=== PATIENT | male | born 1955 | race African-American/Black ===

== ENCOUNTER 2023-09-02 15:30 | Inpatient (IN) | payer OTHER, SELFPAY ==
[2023-09-02 17:00] LABS: #Basophils 0.02 10x3/uL (0.0-0.2); #Eosinphils 0.03 10x3/uL (0.0-0.5); #Monocytes 0.88 10x3/uL (0.0-1.1); #Neutrophils 3.13 10x3/uL (1.5-8.4); %Basophils 0.3 % (0.0-2.0); %Eosinophils 0.5 % (0.0-6.0); %Lymphocytes 36.6 % (18.0-47.0); %Monocytes 13.7 % (0.0-10.0); %Neutrophils 48.6 % (40.0-75.0); Hemoglobin 10.5 g/dL (13.5-17.5); Mean Corpuscular HGB CONC 32.8 g/dL (32.0-36.0); Mean Corpuscular Hemoglobin 30.6 pg (27.0-33.0); Mean Corpuscular Volume 93.3 fl (81.2-95.1); Mean Platelet Volume 11.8 fl (7.4-10.4); Platelet Count 145 10x3/uL (150-450); RBC Distribution Width 13.4 % (11.5-14.5); Red Blood Cell (RBC) Count 3.43 10x6/uL (4.32-5.72); White Blood Cell (WBC) Count 6.4 10x3/uL (3.5-10.5)
[2023-09-02 17:06] LABS: ALT (SGPT) 20 U/L (8-55); AST (SGOT) 44 U/L (5-34); Acetaminophen Less than 10 mcg/mL (10.0-30.0); Albumin 3.3 g/dL (3.4-4.8); Alcohol Less than 10.0 mg/dL (Less than 10); Alkaline Phosphatase 75 U/L (40-110); Anion Gap 18 mmol/L (10-20); BUN (Urea Nitrogen) 20 mg/dL (8.4-25.7); Bilirubin, Total 0.9 mg/dL (0.2-1.2); Calc. Creatinine Clearance 0 mL/min (70-130); Calcium 9.8 mg/dL (7.8-10.44); Carbon Dioxide 22 mmol/L (23-31); Chloride 102 mmol/L (98-107); Estimated GFR 94; Globulin 3.9 g/dL (2.4-3.5); Glucose 108 mg/dL (80-115); Lipase 34 U/L (8-78); Magnesium 1.9 mg/dL (1.6-2.6); Potassium 4.5 mmol/L (3.5-5.1); Protein, Total 7.2 g/dL (5.8-8.1); Salicylate Less than 8.0 mg/dL (15.0-30.0); Sodium 137 mmol/L (136-145)
[2023-09-02 17:07] LABS: Troponin I 0.063 ng/mL (< 0.028)
[2023-09-02] MEDS ORDERED: Guaifenesin DM 100-10/5 ML UDCUP PO PRN (19:25)
[2023-09-02] MEDS ORDERED: Calcium Carbonate 500 MG ChewTAB PO PRN (19:25)
[2023-09-02] MEDS ORDERED: Ondansetron PF 4 MG/2 ML Vial IVP PRN (19:25)
[2023-09-02] MEDS ORDERED: Senokot S 8.6-50 MG TAB PO PRN (19:25)
[2023-09-02 19:39] LABS: Lactic Acid 2.4 mmol/L (0.5-2.2)
[2023-09-02 20:10] VITALS: BMI 15.0
[2023-09-02] MEDS: Metoprolol Tartrate 25 MG TAB PO SCH (20:25)
[2023-09-02] MEDS: Thiamine HCl 200 MG/2 ML VIAL SLOW IVP SCH (20:25)
[2023-09-02] MEDS: Dextrose 5 % And 0.9 % NaCl 1,000 ML IV SCH (20:25)
[2023-09-03] MEDS: VANCOMYCIN 1.25 GM/250 ML BAG 1.25 GM in Premix 1 BAG IVPB SCH (01:26)
[2023-09-03 04:21] LABS: Hematocrit 28.2 % (38.8-50.0); Hemoglobin 9.6 g/dL (13.5-17.5); Mean Corpuscular Hemoglobin 31.2 pg (27.0-33.0); Mean Corpuscular Volume 91.6 fl (81.2-95.1); Mean Platelet Volume 12.1 fl (7.4-10.4); Platelet Count 125 10x3/uL (150-450); RBC Distribution Width 13.3 % (11.5-14.5); Red Blood Cell (RBC) Count 3.08 10x6/uL (4.32-5.72)
[2023-09-03 04:33] LABS: MDiff Complete? YES
[2023-09-03 04:37] LABS: Eosinophils 2 % (0-10); Lymphocytes 39 % (21-51); Monocytes 9 % (0-10); Neutrophil 49 % (42-75); Reactive Lymphocytes 1 % (0-10)
[2023-09-03 04:38] LABS: White Blood Cell (WBC) Count 6.5 10x3/uL (3.5-10.5)
[2023-09-03 04:39] LABS: Lactic Acid 0.9 mmol/L (0.5-2.2)
[2023-09-03 04:44] LABS: Anion Gap 13 mmol/L (10-20); BUN (Urea Nitrogen) 19 mg/dL (8.4-25.7); CK (CPK) 440 U/L (30-200); Calc. Creatinine Clearance 71 mL/min (70-130); Calcium 9.2 mg/dL (7.8-10.44); Carbon Dioxide 22 mmol/L (23-31); Chloride 107 mmol/L (98-107); Estimated GFR 98; Glucose 94 mg/dL (80-115); Sodium 138 mmol/L (136-145)
[2023-09-03 04:45] LABS: Ovalocytes SLIGHT = 2-5 cells (100X) (0-1/hpf)
[2023-09-03 04:46] LABS: Platelet Adequacy Comment Appears Adequate
[2023-09-03 04:52] LABS: Troponin I 0.051 ng/mL (< 0.028)
[2023-09-03 08:21] LABS: Bilirubin Neg (Negative); Blood, Urine Negative (Negative); Clarity Clear (Clear); Glucose, Urine (Dipstick) Normal (Negative); Ketone, Urine Negative (Negative); Leukocyte 25 (Negative); Nitrite Negative (Negative); Protein, Urine (Dipstick) 15 mg/dl (Neg-Trace); Specific Gravity, Urine 1.025 (1.005-1.030)
[2023-09-03 08:27] LABS: Bacteria/HPF 2+ HPF (None Seen); RBC/HPF 0-3 HPF (0-3); Squamous Epithelial 0-3 HPF (0-3)
[2023-09-03] MEDS: traMADol HCl 50 MG TAB PO PRN (10:01)
[2023-09-03] MEDS: Thiamine 100 MG TAB PO SCH (10:02)
[2023-09-03] MEDS: Folic Acid 1 MG TAB PO SCH (10:02)
[2023-09-03] MEDS: Aspirin 81 mg Enteric Coated Tablet PO SCH (10:02)
[2023-09-03] MEDS: Multivit, Therapeutic 1 TAB PO SCH (10:03)
[2023-09-03] MEDS: Enoxaparin 40 MG (0.4 mL) SYRINGE SC SCH (10:03)
[2023-09-03] MEDS: Vancomycin HCl 750 MG in Sodium Chloride 0.9% 250 ML 250 ML IVPB SCH (12:47)
[2023-09-03] MEDS: Lorazepam 2 MG/ML VIAL SLOW IVP PRN (13:31)
[2023-09-03] MEDS: Rosuvastatin 20 MG TAB PO SCH (21:30)
[2023-09-03] MEDS: Mirtazapine 15 MG TAB PO SCH (21:30)
[2023-09-04 04:26] LABS: Vancomycin, Random 10.4 ug/mL (See Comment)
[2023-09-04 04:27] LABS: ALT (SGPT) 25 U/L (8-55); AST (SGOT) 58 U/L (5-34); Albumin 2.9 g/dL (3.4-4.8); Alkaline Phosphatase 67 U/L (40-110); Anion Gap 13 mmol/L (10-20); BUN (Urea Nitrogen) 15 mg/dL (8.4-25.7); Bilirubin, Total 0.5 mg/dL (0.2-1.2); Calc. Creatinine Clearance 73 mL/min (70-130); Calcium 9.4 mg/dL (7.8-10.44); Carbon Dioxide 23 mmol/L (23-31); Chloride 106 mmol/L (98-107); Estimated GFR 98; Globulin 3.9 g/dL (2.4-3.5); Glucose 79 mg/dL (80-115); Protein, Total 6.8 g/dL (5.8-8.1); Sodium 138 mmol/L (136-145)
[2023-09-04 04:35] LABS: Hematocrit 32.5 % (38.8-50.0); Hemoglobin 10.7 g/dL (13.5-17.5); Mean Corpuscular HGB CONC 32.9 g/dL (32.0-36.0); Mean Corpuscular Hemoglobin 30.7 pg (27.0-33.0); Mean Corpuscular Volume 93.4 fl (81.2-95.1); Mean Platelet Volume 11.4 fl (7.4-10.4); Platelet Count 128 10x3/uL (150-450); RBC Distribution Width 13.6 % (11.5-14.5); Red Blood Cell (RBC) Count 3.48 10x6/uL (4.32-5.72)
[2023-09-04 04:45] LABS: Band 1 % (5-11); Eosinophils 2 % (0-10); Lymphocytes 32 % (21-51); Monocytes 10 % (0-10)
[2023-09-04 04:51] LABS: Ovalocytes SLIGHT = 2-5 cells (100X) (0-1/hpf)
[2023-09-04 04:52] LABS: Platelet Adequacy Comment Appears Decreased; White Blood Cell (WBC) Count 7.3 10x3/uL (3.5-10.5)
[2023-09-04 04:56] LABS: Neutrophil 55 % (42-75)
[2023-09-04 05:18] LABS: MDiff Complete? YES
[2023-09-04] MEDS: Enoxaparin 30 MG (0.3 mL) SYRINGE SC SCH (09:52)
[2023-09-04 09:56] VITALS: BMI 15.0
[2023-09-04] MEDS ORDERED: Morphine 2 MG/ML VIAL SLOW IVP PRN (13:35)
[2023-09-04] MEDS: Morphine 2 MG/ML VIAL SLOW IVP PRN (13:43)
[2023-09-04] MEDS ORDERED: Vancomycin HCl 750 MG in Sodium Chloride 0.9% 250 ML 250 ML IVPB SCH (16:00)
[2023-09-04] MEDS: Vancomycin HCl 750 MG in Sodium Chloride 0.9% 250 ML 250 ML IVPB SCH (17:50)
[2023-09-04] MEDS: Acetaminophen 325 MG TAB PO PRN (21:35)
[2023-09-05 17:29] LABS: Anion Gap 13 mmol/L (10-20); BUN (Urea Nitrogen) 15 mg/dL (8.4-25.7); Calc. Creatinine Clearance 76 mL/min (70-130); Calcium 9.4 mg/dL (7.8-10.44); Carbon Dioxide 25 mmol/L (23-31); Chloride 103 mmol/L (98-107); Estimated GFR 100; Glucose 99 mg/dL (80-115); Magnesium 1.5 mg/dL (1.6-2.6); Potassium 3.9 mmol/L (3.5-5.1); Sodium 137 mmol/L (136-145)
[2023-09-05] MEDS ORDERED: Electrolyte Replacement Protocol 1 EACH FS SCH (18:30)
[2023-09-05] MEDS: Magnesium 2 GM/50 ML(in water) 2 GM in Premix 1 BAG IVPB SCH (21:21)
[2023-09-06 05:16] LABS: Magnesium 1.9 mg/dL (1.6-2.6); Phosphorus 2.6 mg/dL (2.3-4.7)
[2023-09-06 05:19] LABS: Vancomycin, Random 9.6 ug/mL (See Comment)
[2023-09-06] MEDS: Vancomycin 1 GM in Sodium Chloride 0.9% 250 ML 250 ML IVPB SCH (05:53)
[2023-09-06] MEDS: Magnesium 2 GM/50 ML(in water) 2 GM in Premix 1 BAG IVPB SCH (09:07)
[2023-09-06] MEDS ORDERED: Electrolyte Replacement Protocol 1 EACH FS PRN (17:35)
[2023-09-06] MEDS: Cefadroxil Hydrate 500 mg/5 ml Suspenion PO SCH (21:20)
[2023-09-07] MEDS: Enoxaparin 40 MG (0.4 mL) SYRINGE SC SCH (08:01)
[2023-09-07 09:36] LABS: Anion Gap 12 mmol/L (10-20); BUN (Urea Nitrogen) 13 mg/dL (8.4-25.7); Calc. Creatinine Clearance 78 mL/min (70-130); Calcium 9.1 mg/dL (7.8-10.44); Carbon Dioxide 24 mmol/L (23-31); Chloride 103 mmol/L (98-107); Estimated GFR 100; Glucose 104 mg/dL (80-115); Magnesium 1.7 mg/dL (1.6-2.6); Sodium 135 mmol/L (136-145)
[2023-09-07] MEDS: Magnesium 2 GM/50 ML(in water) 2 GM in Premix 1 BAG IVPB SCH (17:18)
[2023-09-07] MEDS: Magnesium Oxide 400 MG TAB PO SCH (18:14)
[2023-09-08 05:56] VITALS: TEMP 98.8
[2023-09-08] MEDS: Enoxaparin 30 MG (0.3 mL) SYRINGE SC SCH (10:21)
[2023-09-08 12:44] VITALS: BP 120/72
== END 2023-09-08 14:08 | DRG 884 ==
LOC: CSHERS 15:30 → CSHTELE 18:32 → EDUNIT# 23:51 → OBSVTOIN 23:51
PROVIDERS: ADMIT Family Medicine; ATTEND Internal Medicine
DX: F03.90 Unspecified dementia, unspecified severity, without behavioral disturbance, psychotic disturbance, mood disturbance, and anxiety (principal); E43 Unspecified severe protein-calorie malnutrition; G93.40 Encephalopathy, unspecified; Z68.1 Body mass index [BMI] 19.9 or less, adult; Z66 Do not resuscitate; E86.0 Dehydration; I10 Essential (primary) hypertension; F10.90 Alcohol use, unspecified, uncomplicated; R79.89 Other specified abnormal findings of blood chemistry; D69.6 Thrombocytopenia, unspecified; L89.629 Pressure ulcer of left heel, unspecified stage; D75.89 Other specified diseases of blood and blood-forming organs; D64.9 Anemia, unspecified; I73.9 Peripheral vascular disease, unspecified; I25.9 Chronic ischemic heart disease, unspecified; Z79.899 Other long term (current) drug therapy; Z87.891 Personal history of nicotine dependence
CPT/HCPCS: 36415; 70450; 71045; 75635; 80048; 80053; 80202; 80307; 81001; 82550; 83605; 83690; 83735; 84100; 84145; 84443; 84484; 85025; 86140; 87040; 93005; 93010; 93306; 93923; 97139; J1650; J2060; J2272; J3370; J3411; J3475; J7042; J7050